=== PATIENT | female | born 1995 | race Caucasian/White ===

== ENCOUNTER 2016-09-16 00:35 | Emergency (ER) | payer MEDICAID ==
[2016-09-16] MEDS ORDERED: NS 1,000 ML IV ONE (00:41)
[2016-09-16] MEDS ORDERED: LORazepam 2 MG/ML INJ IVP ONE (00:41)
--- NOTE | 2016-09-16 00:44 | EDPHY ---
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 She tells me she has not taken her blood pressure medications it months. She has no specific reason for this. She presents emergency room by EMS with acute anxiety and panic attack. EMS make contact with her and her heart rate was in the 160s blood pressure to 100s. She was having a panic attack gave her 5 mg IV total of Versed in route and upon arrival to the emergency room she is much improved. She does tell me she still feels anxious. Heart rate is improved from 160-106. Blood pressure down to the 150s. She has no chest pain no shortness of breath and does still feel anxious. She tells me she has Ativan p.r.n. but did not take any of this this evening. She also tells me she got an argument with her boyfriend this is what precipitated her acute anxiety. Past Medical History: Lisha syndrome, anxiety, panic attacks Past Surgical History: wisdom tooth extraction Social History: [employer] student, denies daily use drugs alcohol tobacco products Family History: noncontributory ROS REVIEW OF SYSTEMS: A comprehensive 10 point review of systems is otherwise negative aside from elements mentioned in the history of present illness. Exam Constitutional anxious triage nursing summary reviewed, vital signs reviewed, awake/alert. vital signs reviewed anxious, tachycardic, hypertensive. Eyes normal conjunctivae and sclera, EOMI, PERRLA. HENT normal inspection, atraumatic, moist mucus membranes, no epistaxis, neck supple/ no meningismus, no raccoon eyes. Respiratory clear to auscultation bilaterally, normal breath sounds, no respiratory distress, no wheezing. Cardiovascular tachycardic, regular rhythm, no murmur, no edema, distal pulses normal. Gastrointestinal soft, non-tender, no rebound, no guarding, normal bowel sounds, no distension, no pulsatile mass. Genitourinary no CVA tenderness. Musculoskeletal no midline vertebral tenderness, full range of motion, no calf swelling, no tenderness of extremities, no meningismus, good pulses, neurovascularly intact. Skin pink, warm, & dry, no rash, skin atraumatic. Neurologic anxious awake, alert and oriented x 3, AAOx3, moves all 4 extremities equally, motor intact, sensory intact, CN II-XII intact, normal cerebellar, normal vision, normal speech. Psychiatric anxiety Heme/Lymph/Immune no lymphadenopathy. Differential Diagnosis: Includes but is not limited to in a particular order came acute anxiety attack, panic attack, medication noncompliance with her hypertension, dehydration, electrolyte disturbance Medical Decision Making: Plan for this patient be placed on full cardiac exercise physiologist, she will have an IV established will give her fluid bolus 1 L normal saline, also 1 mg IV Ativan will check basic blood work. She was placed on full monitor re-evaluate blood pressure. Re-evaluation: [id number]: Re-examination at this time this patient is feeling much better after IV Ativan she has, cooperative boyfriend at bedside. She requested she would like to be discharged home. Patient tells me that she feels much better. Anxiety is resolved. It is noted her blood pressure is 150 systolic she is supposed to be taking blood pressure medication but does not do so. I did encourage her to follow up with her primary care doctor get restarted on her blood pressure medication she agrees with this plan. At this time she is hemodynamically stable no acute distress resting comfortably. Source: Patient, EMS - Medical/Surgical History Hx Asthma: No Hx Chronic Respiratory Disease: No Hx Diabetes: No Hx Cardiac Disease: No Hx Renal Disease: Yes Hx Cirrhosis: No Hx Alcoholism: No Hx HIV/AIDS: No Hx Splenectomy or Spleen Trauma: No Other PMH: Liddles syndrome, anxiety, depression. - Social History Smoking Status: Never smoked Constitutional: Initial Vital Signs Temperature (C) 36.8 C 09/16/16 01:05 Heart Rate 110 H 09/16/16 01:05 Respiratory Rate 24 H 09/16/16 01:05 Blood Pressure 164/126 H 09/16/16 01:05 O2 Sat (%) 97 09/16/16 01:05 O2 Delivery Mode Room Air Allergies/Adverse Reactions: No Known Allergies Allergy (Unverified 09/16/16 01:03) Home Medications: Medication Instructions Recorded LORazepam [Ativan] 1 mg PO Q6-8PRN PRN #10 tab 05/03/16 Amiloride 09/16/16 Medical Decision Making - Data Points Laboratory Results: Laboratory Results 09/16/16 00:35 09/16/16 00:35 09/16/16 09/16/16 00:35 00:35 WBC 14.32 10^3/uL H 10^3/uL (3.80-9.50) RBC 5.30 10^6/uL 10^6/uL (4.18-5.33) Hgb 14.8 g/dL g/dL (12.6-16.3) Hct 44.5 % % (38.0-47.0) MCV 84.0 fL fL (81.5-99.8) MCH 27.9 pg pg (27.9-34.1) MCHC 33.3 g/dL g/dL (32.4-36.7) RDW 13.3 % % (11.5-15.2) Plt Count 297 10^3/uL 10^3/uL (150-400) MPV 10.2 fL fL (8.7-11.7) Neut % (Auto) 56.2 % % (39.3-74.2) Lymph % (Auto) 34.9 % % (15.0-45.0) [place] % (Auto) 7.2 % % (4.5-13.0) Eos % (Auto) 0.8 % % (0.6-7.6) Baso % (Auto) 0.6 % % (0.3-1.7) Nucleat RBC Rel Count 0.0 % % (0.0-0.2) Absolute Neuts (auto) 8.05 10^3/uL H 10^3/uL (1.70-6.50) Absolute Lymphs (auto) 5.00 10^3/uL H 10^3/uL (1.00-3.00) Absolute Monos (auto) 1.03 10^3/uL H 10^3/uL (0.30-0.80) Absolute Eos (auto) 0.11 10^3/uL 10^3/uL (0.03-0.40) Absolute Basos (auto) 0.09 10^3/uL 10^3/uL (0.02-0.10) Absolute Nucleated RBC 0.00 10^3/uL 10^3/uL (0-0.01) Immature Gran % 0.3 % % (0.0-1.1) Immature Gran # 0.04 10^3/uL 10^3/uL (0.00-0.10) Sodium 147 mEq/L H mEq/L (134-144) Potassium 3.2 mEq/L L mEq/L (3.5-5.2) Chloride 105 mEq/L mEq/L (97-110) Carbon Dioxide 21 mEq/l L mEq/l (22-31) Anion Gap 21 mEq/L H mEq/L (8-16) BUN 13 mg/dL mg/dL (7-23) Creatinine 0.8 mg/dL mg/dL (0.6-1.0) Estimated GFR > 60 Glucose 103 mg/dL H mg/dL (70-100) Calcium 10.2 mg/dL mg/dL (8.5-10.4) Medications Given: Discontinued Medications Sodium Chloride (Ns) 1,000 mls @ 0 mls/hr IV ONCE ONE PRN Reason: Wide Open Stop: 09/16/16 00:42 Last Admin: 09/16/16 00:57 Dose: 1,000 mls Lorazepam (Ativan Injection) 1 mg IVP EDNOW ONE Stop: 09/16/16 00:42 Last Admin: 09/16/16 00:45 Dose: 1 mg Departure - Departure Disposition: Home, Routine, Self-Care Clinical Impression: Acute anxiety Condition: Good Instructions: Hypertension (ED), Anxiety (ED) Additional Instructions: 1. Please return emergency room if develops any worsening symptoms questions or concerns. 2. Please follow up with her primary care doctor for your blood pressure management. Referrals: Patient,NotPresent [Unknown] - As per Instructions
[2016-09-16 00:51] LABS: % IMMATURE GRANULYOCYTES 0.3 % (0.0-1.1); ABSOLUTE IMMATURE GRANULOCYTES 0.04 10^3/uL (0.00-0.10); ADD DIFF? NO; ADD MORPH? NO; ADD SCAN? NO; ATYPICAL LYMPHOCYTE FLAG 10 (0-99); FRAGMENT RBC FLAG 0 (0-99); HEMATOCRIT 44.5 % (38.0-47.0); HEMOGLOBIN 14.8 g/dL (12.6-16.3); LEFT SHIFT FLG 0 (0-99); LIPEMIA HEMOLYSIS FLAG 80 (0-99); MEAN CELL HEMOGLOBIN 27.9 pg (27.9-34.1); MEAN CELL HEMOGLOBIN CONCENTR. 33.3 g/dL (32.4-36.7); MEAN PLATELET VOLUME 10.2 fL (8.7-11.7); PLATELET CLUMPS FLAG 0 (0-99); PLATELET COUNT 297 10^3/uL (150-400); RED CELL DISTRIBUTION WIDTH 13.3 % (11.5-15.2)
[2016-09-16 00:59] LABS: ANION GAP 21 mEq/L (8-16); CALCIUM 10.2 mg/dL (8.5-10.4); CARBON DIOXIDE 21 mEq/l (22-31); CHLORIDE 105 mEq/L (97-110); CREATININE 0.8 mg/dL (0.6-1.0); GLOMERULAR FILTRATION RATE > 60; GLUCOSE 103 mg/dL (70-100); POTASSIUM 3.2 mEq/L (3.5-5.2); SODIUM 147 mEq/L (134-144)
[2016-09-16 02:44] VITALS: BP 150/119; PULSE 103; RESP 16; TEMP 98.1; O2SAT 99
== END 2016-09-16 02:45 | disposition home or self-care (01) ==
LOC: EDUNIT#
DX: F41.9 Anxiety disorder, unspecified (principal)
CPT/HCPCS: 96374; J2060